=== PATIENT | male | born 1970 | race Caucasian/White ===

== ENCOUNTER 2024-10-31 06:22 | Day surgery (SDC) | payer MEDICARE, SELFPAY | END 2024-10-31 15:31 | disposition home or self-care (01) | LOC: GI 06:22 | PROVIDERS: ATTENDING PHYSICIAN Internal Medicine Gastroenterology | DX: Z12.11 Encounter for screening for malignant neoplasm of colon (principal); K64.8 Other hemorrhoids; K57.30 Diverticulosis of large intestine without perforation or abscess without bleeding; K51.30 Ulcerative (chronic) rectosigmoiditis without complications; R12 Heartburn; K31.7 Polyp of stomach and duodenum; K31.89 Other diseases of stomach and duodenum; K90.0 Celiac disease; D12.4 Benign neoplasm of descending colon | CPT/HCPCS: 45380; 43239; 88305; 88342 ==